=== PATIENT | male | born 1980 | race Caucasian/White ===

== ENCOUNTER 2022-04-11 16:02 | Observation (INO) ==
[2022-04-11] MEDS ORDERED: Ondansetron 4 mg VIAL 2 MG/ML 2 ml VIAL IV ONE (16:17)
[2022-04-11] MEDS ORDERED: Lactated Ringers 1000 ml BAG 1,000 ML IV ONE (16:19)
[2022-04-11 16:50] LABS: ABS Eosinophils 0.1 10^3/ul (0-0.6); ABS Lymphocytes 1.8 10^3/ul (1.0-4.8); ABS Monocytes 0.6 10^3/ul (0-0.8); Eosinophil % 0.9 %; Hematocrit 46 % (42-52); Hemoglobin 15.1 g/dL (14.0-18.0); Lymphocyte % 15.9 %; Mean Corpuscular HGB Conc 33 g/dL (31-36); Mean Corpuscular Hemoglobin 31 pg (27-31); Mean Corpuscular Volume 92 fL (80-94); Mean Platelet Volume 10.1 fL (7.4-10.4); Platelet Count 214 10^3/uL (150-450); Red Blood Count 4.94 10^6 /uL (4.18-5.48); Red Cell Distribution Width 13 % (10-15); White Blood Count 11.5 10^3/uL (3.5-10.8)
[2022-04-11 17:16] LABS: ALT 12 U/L (7-52); AST 19 U/L (13-39); Albumin 4.8 g/dL (3.2-5.2); Alkaline Phosphatase 73 U/L (35-149); Anion Gap 5 mmol/L (2-11); Blood Urea Nitrogen 20 mg/dL (6-24); C Reactive Protein < 1.00 mg/L (<8.01); CO2 Carbon Dioxide 33 mmol/L (22-32); Chloride 100 mmol/L (101-111); Creatinine, Serum 1.12 mg/dL (0.67-1.17); Globulin 2.4 g/dL (2-4); Glucose 116 mg/dL (70-100); Lipase 22 U/L (11.0-82.0); Potassium 4.3 mmol/L (3.5-5.0); Sodium 138 mmol/L (135-145); Total Protein 7.2 g/dL (6.4-8.9); eGFR CKD-EPI 83.6 (>60)
[2022-04-11] MEDS ORDERED: Morphine 4 MG/ML VIAL (1 ml) IV ONE (18:22)
[2022-04-11] MEDS ORDERED: cefTRIAXone 2 gm/50 mL D5W 2 GM/50 ML BAG IV ONE (18:23)
[2022-04-11 18:36] LABS: Urine Appearance Turbid; Urine Bilirubin Negative (Negative); Urine Blood 2+ (Negative); Urine Color Yellow; Urine Glucose Negative (Negative); Urine Ketones Negative (Negative); Urine Nitrite Negative (Negative); Urine Protein 1+(30 mg/dL) (Negative); Urine Specific Gravity 1.021 (1.002-1.030); Urine Urobilinogen Negative (Negative)
[2022-04-11 18:53] LABS: Urine Bacteria Absent (Absent); Urine Red Blood Cell 3+(>10/hpf) (Absent); Urine White Blood Cell Trace(0-5/hpf) (Absent)
[2022-04-11] MEDS ORDERED: Morphine 4 MG/ML VIAL (1 ml) IV PRN (19:22)
[2022-04-11] MEDS ORDERED: Ondansetron 4 mg VIAL 2 MG/ML 2 ml VIAL IV PRN (19:26)
[2022-04-12 06:07] LABS: ABS Eosinophils 0.1 10^3/ul (0-0.6); ABS Lymphocytes 2.1 10^3/ul (1.0-4.8); ABS Monocytes 0.5 10^3/ul (0-0.8); ABS Neutrophils 4.4 10^3/ul (1.5-7.7); Eosinophil % 1.2 %; Hematocrit 42 % (42-52); Hemoglobin 14.2 g/dL (14.0-18.0); Lymphocyte % 29.1 %; Mean Corpuscular HGB Conc 34 g/dL (31-36); Mean Corpuscular Hemoglobin 31 pg (27-31); Mean Corpuscular Volume 92 fL (80-94); Nucleated Red Blood Cells % 0.1; Platelet Count 175 10^3/uL (150-450); Red Blood Count 4.61 10^6 /uL (4.18-5.48); Red Cell Distribution Width 13 % (10-15); White Blood Count 7.1 10^3/uL (3.5-10.8)
[2022-04-12 06:20] LABS: Calcium 9.3 mg/dL (8.6-10.3); Creatinine, Serum 1.09 mg/dL (0.67-1.17); Potassium 4.4 mmol/L (3.5-5.0); eGFR CKD-EPI 86.4 (>60)
[2022-04-12] MEDS ORDERED: Lactated Ringers 1000 ml BAG 1,000 ML IV SCH ×2 (08:00→08:05)
[2022-04-12] MEDS ORDERED: Prochlorperazine 5 mg/ml 2 ml VIAL (10 mg) IV PRN (09:28)
[2022-04-12] MEDS ORDERED: Prochlorperazine 5 mg/ml 2 ml VIAL (10 mg) ONE (09:38)
[2022-04-12] MEDS ORDERED: Lidocaine 2% PF 5 ML VIAL ONE (10:16)
[2022-04-12] MEDS ORDERED: Propofol 10 MG/ML 20 ML BTL ONE (10:21)
[2022-04-12] MEDS ORDERED: Iohexol 180 (CONTRAST) 20 ML SDV IV ONE (10:29)
[2022-04-12] MEDS ORDERED: Lidocaine 2% JELLY 20 ML (for OR use) ONE (10:50)
[2022-04-12] MEDS ORDERED: cefTRIAXone VIAL 1,000 MG VIAL ONE (10:53)
[2022-04-12] MEDS ORDERED: Ketamine HCL 50 mg/ml 10 ml VIAL (500 MG) ONE (10:58)
[2022-04-12] MEDS ORDERED: Sterile Water for Inj 10 ML ONE (10:59)
[2022-04-12] MEDS ORDERED: Morphine ORAL.SOLN 10 mg 2 mg/ml UDC 5 ml (10 mg) PO PRN (12:12)
[2022-04-12 14:02] VITALS: BP 120/75
[2022-04-12] MEDS ORDERED: cefTRIAXone 2 gm/50 mL D5W 2 GM/50 ML BAG IV SCH (18:00)
[2022-04-13] MEDS ORDERED: cefTRIAXone 2 GM ADDV.VIAL 2 GM in NS 0.9% 100 ml BAG 100 ML IV SCH (11:00)
== END 2022-04-12 15:50 | disposition home or self-care (01) ==
LOC: EDHOLD 16:02 → ED 16:02 → SUATTDRO 18:49 → SSU 22:15
PROVIDERS: ADMIT Internal Medicine; ATTEND Internal Medicine